=== PATIENT | male | born 1935 | race American Indian/Alaskan Native ===

== ENCOUNTER 2016-04-09 20:53 | Emergency (ER) | payer MEDICARE ==
[2016-04-09 21:41] LABS: Basophils % (Auto) 0.4 % (0.0-1.8); Eosinophils % (Auto) 0.2 % (0.0-4.3); Hematocrit 27.8 % (35.5-45.6); Hemoglobin 9.4 gm/dl (11.8-15.2); Mean Corpuscular HGB Conc 34 % (32-34); Mean Corpuscular Hemoglobin 30 pg (28-32); Mean Corpuscular Volume 87 fl (84-94); Platelet Count 315 K/mm3 (140-440); Red Cell Distribution Width 16.9 % (13.2-15.2); White Blood Count 7.5 K/mm3 (4.5-11.0)
[2016-04-09 21:48] LABS: Bilirubin,Urine NEG (Negative); Blood,Urine SM (Negative); Ketones,Urine TR mg/dL (Negative); Leukocyte Esterase,Urine NEG (Negative); Nitrite,Urine NEG (Negative); Protein,Urine <15 mg/dL mg/dL (Negative); Urobilinogen,Urine < 2.0 mg/dL (<2.0); WBC,Urine < 1.0 /HPF (0.0-6.0)
[2016-04-09 22:09] LABS: Anion Gap 22 mmol/L; B-Hydroxybutyrate 10.6 mg/dL (0.2-2.8); Blood Urea Nitrogen 24 mg/dL (9-20); Calcium 8.4 mg/dL (8.4-10.2); Carbon Dioxide 20 mmol/L (22-30); Chloride 93.9 mmol/L (98-107); Glucose 488 mg/dL (75-100); Potassium 4.4 mmol/L (3.6-5.0); Sodium 131 mmol/L (137-145)
[2016-04-09] MEDS ORDERED: NACL 0.9% 1000 ML 1,000 ML IV ONE ×2 (22:12→23:25)
--- NOTE | 2016-04-09 23:51 | Emergency Department Report ---
ED General Adult HPI - General Chief complaint: Hyperglycemia Stated complaint: HIGH BLOOD SUGAR Time Seen by Provider: 04/09/16 22:28 Source: patient, EMS Mode of arrival: Stretcher Limitations: No Limitations - History of Present Illness Initial comments: 80-year-old male presents to the emergency department complaining of elevated blood sugar. Patient states symptoms have been present for approximately one week. He reports generalized aches. He states he was recently taken off of Januvia and glipizide and started on metformin and Lantus. He states for the past week his home blood sugars have been reading over 300. Earlier today, he reports the meter was reading high. He denies abdominal pain, nausea, or vomiting. There are no other complaints. -: Gradual, week(s) (1) Severity scale (0 -10): 0 Consistency: constant Improves with: none Worsens with: none Associated Symptoms: denies other symptoms Treatments Prior to Arrival: none - Related Data Home Medications Medication Instructions Recorded Confirmed Last Taken Aspirin [Aspirin BABY CHEW TAB] 324 mg PO QDAY 04/09/16 04/09/16 04/09/16 Insulin Glargine [Lantus] 24 unit SUB-Q QHS 04/09/16 04/09/16 Unknown Previous Rx's Medication Instructions Recorded Last Taken Type oxyCODONE /ACETAMINOPHEN [Percocet 1 tab PO Q6HR PRN #20 tablet 04/10/16 Unknown Rx 5/325] Allergies Allergy/AdvReac Type Severity Reaction Status Date / Time No Known Allergies Allergy Verified 04/09/16 23:08 ED Review of Systems ROS: Stated complaint: HIGH BLOOD SUGAR Other details as noted in HPI Comment: All other systems reviewed and negative Constitutional: malaise Endocrine: see HPI ED Past Medical Hx - Past Medical History Previous Medical History?: Yes Hx Hypertension: Yes Hx Heart Attack/AMI: Yes (2007 with stent) Hx Diabetes: Yes (Type 2) - Surgical History Past Surgical History?: Yes Additional Surgical History: cardiac stent - Family History Family history: no significant - Social History Smoking Status: Unknown if ever smoked Substance Use Type: None - Medications Home Medications: Home Medications Medication Instructions Recorded Confirmed Last Taken Type Aspirin [Aspirin BABY CHEW TAB] 324 mg PO QDAY 04/09/16 04/09/16 04/09/16 History Insulin Glargine [Lantus] 24 unit SUB-Q QHS 04/09/16 04/09/16 Unknown History oxyCODONE /ACETAMINOPHEN [Percocet 1 tab PO Q6HR PRN #20 tablet 04/10/16 Unknown Rx 5/325] ED Physical Exam - General Limitations: No Limitations General appearance: alert, in no apparent distress - Head Head exam: Present: atraumatic, normocephalic - Eye Eye exam: Present: normal appearance, PERRL, EOMI - ENT ENT exam: Present: normal exam, normal orophraynx, mucous membranes moist - Neck Neck exam: Present: normal inspection, full ROM. Absent: tenderness - Respiratory Respiratory exam: Present: normal lung sounds bilaterally. Absent: respiratory distress - Cardiovascular Cardiovascular Exam: Present: regular rate, normal rhythm, normal heart sounds - GI/Abdominal GI/Abdominal exam: Present: soft, normal bowel sounds. Absent: distended, tenderness - Extremities Exam Extremities exam: Present: normal inspection, full ROM. Absent: tenderness - Back Exam Back exam: Present: normal inspection, full ROM. Absent: tenderness - Neurological Exam Neurological exam: Present: alert, oriented X3. Absent: motor sensory deficit - Skin Skin exam: Present: warm, dry, intact ED Course Vital Signs 04/09/16 04/09/16 04/09/16 21:02 22:23 22:29 Temperature 98.2 F Pulse Rate 84 87 Respiratory 17 16 Rate Blood Pressure 131/57 [Right] O2 Sat by Pulse 96 97 Oximetry 04/10/16 00:00 Temperature Pulse Rate 83 Respiratory 22 Rate Blood Pressure 126/59 [Right] O2 Sat by Pulse 98 Oximetry ED Medical Decision Making - Lab Data Result diagrams: 04/09/16 21:10 04/09/16 21:10 - Medical Decision Making Laboratory results reviewed and discussed with the patient and family. Patient' s blood sugar has decreased following IV fluids and IV insulin. Patient is stable for discharge home. - Differential Diagnosis hyperglycemia, DKA, occult infection Critical care attestation.: If time is entered above; I have spent that time in minutes in the direct care of this critically ill patient, excluding procedure time. ED Disposition Clinical Impression: Hyperglycemia due to type 2 diabetes mellitus Qualifiers: Diabetes mellitus prison insulin use: without termite helper use Qualified Code(s ): E11.65 - Type 2 diabetes mellitus with hyperglycemia Disposition: DISCHARGED TO HOME OR SELFCARE Is pt being admited?: No Condition: Stable Instructions: Diabetic Hyperglycemia (ED) Prescriptions: oxyCODONE /ACETAMINOPHEN [Percocet 5/325] 1 tab PO Q6HR PRN #20 tablet PRN Reason: Pain Referrals: DR NOA [Other] - 3-5 Days Time of Disposition: 03:27
[2016-04-10] MEDS ORDERED: NACL 0.9% 1000 ML 1,000 ML IV ONE
[2016-04-10] MEDS ORDERED: ULTRAM PO ONE (01:19)
[2016-04-10] MEDS ORDERED: PERCOCET 5/325 PO ONE (03:21)
[2016-04-10 04:19] VITALS: BP 124/60
== END 2016-04-10 04:19 | disposition home or self-care (01) ==
LOC: ED 20:53
DX: E11.65 Type 2 diabetes mellitus with hyperglycemia (principal); I10 Essential (primary) hypertension; I25.2 Old myocardial infarction; Z79.82 Long term (current) use of aspirin; Z79.4 Long term (current) use of insulin
CPT/HCPCS: 36415; 80048; 81001; 82010; 82805; 82962; 85025; 96361; 96374; 96376; 99284; J7030; J1815

== ENCOUNTER 2016-04-10 15:54 | Inpatient (IN) | payer MEDICARE ==
[2016-04-10] MEDS ORDERED: D50W (25GM) IV PRN (16:16)
[2016-04-10 17:47] LABS: Basophils % (Auto) 0.4 % (0.0-1.8); Eosinophils % (Auto) 0.8 % (0.0-4.3); Hematocrit 29.6 % (35.5-45.6); Hemoglobin 9.9 gm/dl (11.8-15.2); Mean Corpuscular HGB Conc 33 % (32-34); Mean Corpuscular Hemoglobin 28 pg (28-32); Mean Corpuscular Volume 85 fl (84-94); Platelet Count 336 K/mm3 (140-440); Red Cell Distribution Width 16.9 % (13.2-15.2)
[2016-04-10 17:52] LABS: White Blood Count 6.9 K/mm3 (4.5-11.0)
[2016-04-10 18:07] LABS: Alanine Aminotransferase 11 units/L (7-56); Albumin 3.2 g/dL (3.9-5); Albumin/Globulin Ratio 0.7 %; Alkaline Phosphatase 1023 units/L (35-129); Anion Gap 21 mmol/L; B-Hydroxybutyrate 4.3 mg/dL (0.2-2.8); BUN/Creatinine Ratio 18.75; Bilirubin,Total 0.2 mg/dL (0.1-1.2); Blood Urea Nitrogen 15 mg/dL (9-20); Calcium 8.6 mg/dL (8.4-10.2); Carbon Dioxide 19 mmol/L (22-30); Chloride 101.3 mmol/L (98-107); Glucose 223 mg/dL (75-100); Potassium 4.2 mmol/L (3.6-5.0); Sodium 137 mmol/L (137-145); Total Protein 7.6 g/dL (6.3-8.2)
[2016-04-10] MEDS: BABY ASPIRIN PO SCH (18:50)
--- NOTE | 2016-04-10 19:36 | History and Physical Report ---
History of Present Illness Date of examination: 04/10/16 Date of admission: 04/10/16 17:03 Chief complaint: High blood glucose Generalized weakness Pain in the body Coldness in the lower extremities History of present illness: 80 year old male presenting in the office with complaints of high blood glucose over the past week .Patient with Type 2 Diabetes who was previously on oral diabetes medicaation including Metformin, Glimepiride and JAnuvia .Patient developed progressive difficulty with blood glucose control over the past month and was thus changed to Lantus insulin and being monitored at home .Blood glucose remained high and was reported to be over 500 at home last and patient was admitted to [facility] for five days since last and was discharged home yesterday . Since getting home , patient remained weak , eating poorly and complaining of pain all over the body and bloos glucose this mornig was reported to be 452 .Patient also complaining of pain and coldness in the lower extremity with pain most severe in the right leg down to the foot .Family became concerned that the blood glucose remained elevated and patient becoming weaker and presented in the office today . During hospitalization at [facility] , patient was evaluated for chest pain and Stress test and labs wee reported to be normal .Patient was evaluated by [facility] ([facility]). Patient's blood glucose was checked in the office and noted to be 397now being admitted for further evaluation for possible DKA . Patient denied any chest pain and no shortness of breath and no fever or chills . Past History Past Medical History: diabetes Social history: , lives with family Family history: hypertension Medications and Allergies Allergies Allergy/AdvReac Type Severity Reaction Status Date / Time No Known Allergies Allergy Verified 04/09/16 23:08 Home Medications Medication Instructions Recorded Confirmed Last Taken Type Aspirin [Aspirin BABY CHEW TAB] 324 mg PO QDAY 04/09/16 04/10/16 04/09/16 History Insulin Glargine [Lantus] 24 unit SUB-Q QHS 04/09/16 04/10/16 04/09/16 History Lisinopril 20 mg PO DAILY 04/10/16 04/10/16 04/10/16 History Plavix 75 mg PO DAILY 04/10/16 04/10/16 04/10/16 History metFORMIN 1,000 mg PO BID 04/10/16 04/10/16 04/10/16 History oxyCODONE /ACETAMINOPHEN [Percocet 1 tab PO Q6HR PRN #20 tablet 04/10/16 Unknown Rx 5/325] Active Meds: Active Medications Aspirin (Baby Aspirin) 324 mg PO QDAY [facility] Last Admin: 04/10/16 18:50 Dose: 324 mg Dextrose (D50w (25gm)) 50 ml IV PRN PRN PRN Reason: Hypoglycemia Heparin Sodium (Porcine) (Heparin) 5,000 unit SUB-Q Q12HR [facility] Insulin Detemir (Levemir) 24 units SUB-Q QHS [facility] Review of Systems Constitutional: weight loss, fatigue, weakness, malaise, lethargy, poor appetite Eyes: bilateral: blurred vision Cardiovascular: orthopnea, palpitations, lightheadedness Gastrointestinal: abdominal pain, early satiety Genitourinary Male: urinary frequency Neurological: numbness, tingling, memory loss Endocrine: polyuria, weight change Exam - Constitutional Vitals: Temp Pulse Resp BP Pulse Ox 98.1 F 75 20 135/74 98 04/10/16 18:48 04/10/16 18:48 04/10/16 18:48 04/10/16 18:48 04/10/16 18:48 General appearance: Present: mild distress - EENT ENT: hearing intact, hearing decreased - Neck Neck: Present: supple - Respiratory Respiratory effort: normal Respiratory: bilateral: CTA - Cardiovascular Rhythm: regularly irregular Heart Sounds: Present: S1 & S2 - Extremities Extremity abnormal: cold, pulses diminished Peripheral Pulses: abnormal - Peripheral pulses dorsalis pedis Pulse Strength: 1+ (Doppler) - Abdominal General gastrointestinal: Present: soft, non-tender, non-distended, normal bowel sounds Male genitourinary: Present: deferred - Rectal Rectal Exam: deferred - Integumentary Integumentary: Present: warm, dry, decreased turgor - Musculoskeletal Musculoskeletal: strength equal bilaterally - Psychiatric Psychiatric: depressed - Neurologic Neurologic: CNII-XII intact Results - Labs CBC & Chem 7: 04/10/16 17:27 04/10/16 17:21 Labs: Abnormal lab results 04/10/16 04/10/16 Range/Units 17:21 17:27 RBC 3.50 L (3.65-5.03) M/mm3 Hgb 9.9 L (11.8-15.2) gm/dl Hct 29.6 L (35.5-45.6) % RDW 16.9 H (13.2-15.2) % Carbon Dioxide 19 L (22-30) mmol/L Glucose 223 H (75-100) mg/dL Alkaline Phosphatase 1023 H (35-129) units/L Albumin 3.2 L (3.9-5) g/dL Ketones 4.3 H (0.2-2.8) mg/dL Assessment and Plan - Patient Problems (1) Dehydration Current Visit: Yes Status: Acute Plan to address problem: secondary to ongoing hyperglycemia and polyuria as well as poor oral in take . Will Hydrate with Normal saline and monitor urinary output closely (2) Peripheral arterial disease Current Visit: Yes Status: Acute Plan to address problem: Lower extremity pulses noted to be diminished worse on the right with associated coldness and pain . Will obtain lower extremity arterial dopplers and vascular evaluation if indicated . (3) Essential (primary) hypertension Current Visit: Yes Status: Acute Plan to address problem: BP fairly stable , will continue to monitor (4) Abnormal liver enzymes Current Visit: Yes Status: Acute Plan to address problem: Alkaline phosphatase noted to be moderately elevated . will follow up hepatic function panel ,Ultrasound of RUQ as well as hepatitis profile .
[2016-04-10] MEDS ORDERED: NACL 0.9% 1000 ML 1,000 ML with KCL 20 MEQ IV SCH (20:00)
[2016-04-10] MEDS ORDERED: NON-FORMULARY (Lisinopril 20 MG) PO SCH (20:00)
[2016-04-10] MEDS: HEPARIN SUB-Q SCH (21:21)
[2016-04-10] MEDS: ZESTRIL PO SCH (21:21)
[2016-04-10 21:53] LABS: Bilirubin,Urine NEG (Negative); Blood,Urine SM (Negative); Ketones,Urine NEG (Negative); Leukocyte Esterase,Urine NEG (Negative); Mucus,Urine FEW /HPF; Nitrite,Urine NEG (Negative)
[2016-04-10] MEDS ORDERED: LEVEMIR SUB-Q SCH (22:00)
[2016-04-10] MEDS ORDERED: INSULIN GLARGINE 24 UNIT SUB-Q SCH (22:00)
--- NOTE | 2016-04-11 08:58 | Progress Note ---
Assessment and Plan - Patient Problems (1) Dehydration Current Visit: Yes Status: Acute Plan to address problem: secondary to ongoing hyperglycemia and polyuria as well as poor oral in take . Will Hydrate with Normal saline and monitor urinary output closely (2) Peripheral arterial disease Current Visit: Yes Status: Acute Plan to address problem: Lower extremity pulses noted to be diminished worse on the right with associated coldness and pain . Will obtain lower extremity arterial dopplers and vascular evaluation if indicated . (3) Essential (primary) hypertension Current Visit: Yes Status: Acute Plan to address problem: BP fairly stable , will continue to monitor (4) Abnormal liver enzymes Current Visit: Yes Status: Acute Plan to address problem: Workup abnormally elevated Alkaline phosphatase , check ultrasound of right upper quadrant Subjective Date of service: 04/11/16 Principal diagnosis: Uncontrolled Diabetes , Peripheral arterial disease , moderate dehydration Interval history: Patient seen and examined chart reviewed, labs on admission also reviewed. Patient's denied any chest pain or shortness of breath but complains of ongoing pain in the lower extremities worse on the left lower extremities, no fever reported. Blood sugar reported still running high, a.m. fasting blood sugar was 200. Objective - Exam Narrative Exam: GENERAL: Elderly male who is not in any acute distress, not pale no jaundice no cyanosis HEENT: Mucous membranes dry pharynx is clear no exudate or hemorrhage. NECK: [No JVD, no thyroid enlargement and no lymphadenopathy.] CHEST/LUNGS: [Good air exchange bilaterally, no wheeze, no rales and no rhonchi. ] [No chest wall tenderness, percussion is normal, symmetrical chest wall.] HEART/CARDIOVASCULAR: [Regular rate and rhythm, S1 and S2 only, no murmur.] ABDOMEN: [Abdomen is soft, nondistended, no guarding, no rebound tenderness, no masses palpable per abdomen, active bowel sounds.] SKIN: Skin is dry with poor skin turgor, no rash NEURO: [Awake, alert, oriented x3, speech normal. Power 5/5 in all the extremities.] EXTREMITIES: No pedal edema, peripheral pulses diminished, +1 on the right and left dorsalis pedis. Tibialis posterior poorly palpable bilaterally. Femoral pulses symmetrical good volume. - Constitutional Vitals: Vital Signs - 12hr 04/11/16 04/11/16 00:00 08:51 Temperature 98.3 F 98.6 F Pulse Rate [ 68 72 Right] Respiratory 18 20 Rate Blood Pressure 113/56 126/69 [Right Arm] O2 Sat by Pulse 98 97 Oximetry - Labs CBC & Chem 7: 04/10/16 17:27 04/10/16 17:21 Labs: Abnormal lab results 04/10/16 04/10/16 04/10/16 Range/Units 17:21 17:27 21:23 RBC 3.50 L (3.65-5.03) M/mm3 Hgb 9.9 L (11.8-15.2) gm/dl Hct 29.6 L (35.5-45.6) % RDW 16.9 H (13.2-15.2) % Carbon Dioxide 19 L (22-30) mmol/L Glucose 223 H (75-100) mg/dL POC Glucose 136 H (70-105) Alkaline Phosphatase 1023 H (35-129) units/L Albumin 3.2 L (3.9-5) g/dL Ketones 4.3 H (0.2-2.8) mg/dL 04/11/16 Range/Units 06:26 RBC (3.65-5.03) M/mm3 Hgb (11.8-15.2) gm/dl Hct (35.5-45.6) % RDW (13.2-15.2) % Carbon Dioxide (22-30) mmol/L Glucose (75-100) mg/dL POC Glucose 200 H (70-105) Alkaline Phosphatase (35-129) units/L Albumin (3.9-5) g/dL Ketones (0.2-2.8) mg/dL
[2016-04-11 09:28] LABS: Anion Gap 18 mmol/L; BUN/Creatinine Ratio 15.71; Blood Urea Nitrogen 11 mg/dL (9-20); Carbon Dioxide 21 mmol/L (22-30); Chloride 105.4 mmol/L (98-107); Glucose 200 mg/dL (75-100); Potassium 4.1 mmol/L (3.6-5.0); Sodium 140 mmol/L (137-145)
[2016-04-11] MEDS: HEPARIN SUB-Q SCH ×2 (09:40→23:09)
[2016-04-11] MEDS: BABY ASPIRIN PO SCH (09:40)
[2016-04-11] MEDS: PLAVIX PO SCH (09:41)
[2016-04-11] MEDS: ZESTRIL PO SCH (09:42)
[2016-04-11] MEDS ORDERED: NS/KCL 20MEQ 1,000 ML IV SCH (10:00)
[2016-04-11] MEDS ORDERED: NON-FORMULARY (Plavix 75 MG) PO SCH (10:00)
--- NOTE | 2016-04-11 10:09 | Admit Criteria Form ---
Admission Criteria Documentation: DIABETES Clinical Indications for Admission to Inpatient Care (Place 'X' for any and all applicable criteria): Admission is indicated by presence of ALL (if I & II) or ANY ONE (if III or IV) of the following (1)(2)(3)(4): [X]I. Diabetes is uncontrolled as indicated by ANY ONE of the following: [ ]a) Diabetic ketoacidosis as indicated by ALL of the following (8): [ ]i) Hyperglycemia (eg, plasma glucose greater than 200 mg/ dL (11.1 mmol/L)) [ ]ii) Acidosis (eg, arterial pH less than 7.30, serum bicarbonate level less than 15 mEq/L (mmol/L)) [ ]iii) Moderate ketonuria or ketonemia [ ]b) Hyperglycemic hyperosmolar state as indicated by ALL of the following(9)(10): [ ]i) Neurologic dysfunction (eg, stupor, coma, hemiparesis , seizure)(13) [ ]ii) Plasma glucose greater than 600 mg/dL (33.3 mmol/L) [ ]iii) Serum osmolality greater than 320 mOsm/kg (mmol/kg) [X]c) Severe signs or symptoms secondary to hyperglycemia indicated by ANY ONE of the following: [ ]i) Altered mental status(10) [X]ii) Significant hypovolemia or dehydration [ ]iii) Intractable nausea or vomiting [ ]iv) Unexplained fever or severe infection [ ]v) Severe electrolyte abnormality (eg, hypokalemia, hyperkalemia, hypernatremia) [ ]II. Management at other levels of care (Also use Diabetes: Observation Care as appropriate) is not feasible because of ANY ONE of the following: [ ]a) Condition was not adequately corrected with treatment at other levels of care. [ ]b) Treatment at other levels of care is not appropriate because of condition severity (eg, hyperosmolar coma). [X]III. Contraindications and/or Inappropriate clinical situations for Observational Care in patients with Diabetes, when ANY ONE of the following is required: [X]a) Patient require specific diagnostic workup or therapeutic intervention 22 [ ]b) Patient with abnormal vital signs or altered mental status 23 [ ]IV. General contraindications and/or Inappropriate clinical situations for Observational Care in patients with Diabetes, when ANY ONE of the following is required: [ ]a) Prediction of prolongation of LOS based on ANY ONE of the following may be considered as a contraindication for observational care 2, 3, 4, 5, 6, 7, 8, 9, 10, 11 [ ]i) Age > 65 yrs. [ ]ii) Patient arriving by ambulance [ ]iii) Patient with high acuity [ ]iv) Patient requiring vital sign monitoring [ ]v) Patient on IV medication [ ]b) Systolic blood pressures 180mmHg 3,12 [ ]c) Patient with altered mental status including delirium and other alteration of consciousness, (3) [ ]d) Patient whose discharge disposition will be to a [facility]ci home or rehabilitation home should not be managed in Emergency Department Observation Unit. CMS rule requires 3 days hospital stay before such placement.3,13 [ ]e) Patient with failure to thrive due to broad array of etiologies 3,16,17 [ ]f) Inability to ambulate 3,14 Extended stay beyond goal length of stay may be needed for(3)(20): [ ]a) Treatment of precipitating causes [ ]b) Development of hypoglycemia [ ]c) Complications of treatment [ ]d) Complications of decompensated diabetes (eg, acute gastric dilatation, persistent metabolic or neurologic derangement) [ ]e) Active Comorbidities [ ]f) Older patients( 65 years or older) The original [employer] content created by [employer] has been revised. The portions of the content which have been revised are identified through the use of italic text or in bold,and [facility] has neither reviewed nor approved the modified material. All other unmodified content is copyright [employer]. Please see references footnoted in the original [facility] edition 2016 Admission Criteria Met: Yes
[2016-04-11] MEDS: NOVOLOG SUB-Q SCH ×3 (14:03→22:14)
[2016-04-11] MEDS: TYLENOL PO PRN (21:28)
[2016-04-11] MEDS ORDERED: LEVEMIR SUB-Q SCH (22:00)
[2016-04-12] MEDS: NOVOLOG SUB-Q SCH ×4 (07:30→17:52)
--- NOTE | 2016-04-12 08:42 | Ultrasound Report ---
ULTRASOUND ABDOMEN COMPLETE: Technique: Transabdominal ultrasound with color Doppler interrogation. History: Abnormal liver function tests. Findings: The liver is normal size, contour and echotexture. No focal liver mass or parenchymal disease. The gallbladder dimensions are within normal limits without intraluminal stone, wall thickening, or pericholecystic fluid. The CBD is normal caliber. The visualized portions of the pancreas including the head and proximal body are within normal limits. The kidneys demonstrate no hydronephrosis or mass. A right renal cyst with single septation measures 4.3 x 5.3 cm. Cortical thickness and echogenicity are within normal limits bilaterally. The spleen and aorta are within normal limits. No aneurysmal dilatation is noted. No ascites. The bladder is unremarkable. Small bilateral pleural effusions are partially imaged. IMPRESSION: Unremarkable abdominal ultrasound. Right renal cyst. Small bilateral pleural effusions.
--- NOTE | 2016-04-12 09:00 | Progress Note ---
Assessment and Plan - Patient Problems (1) Dehydration Current Visit: Yes Status: Acute Plan to address problem: secondary to ongoing hyperglycemia and polyuria as well as poor oral in take . Will Hydrate with Normal saline and monitor urinary output closely (2) Peripheral arterial disease Current Visit: Yes Status: Acute Plan to address problem: We'll follow up on arterial duplex performed yesterday report still pending. (3) Essential (primary) hypertension Current Visit: Yes Status: Acute Plan to address problem: BP fairly stable , will continue to monitor (4) Abnormal liver enzymes Current Visit: Yes Status: Acute Plan to address problem: Abdominal ultrasound report noted showing no cholelithiasis and normal liver architecture. GGT ordered still pending. (5) Hyperglycemia due to type 2 diabetes mellitus Current Visit: No Status: Acute Qualifiers: Diabetes mellitus terminal gauger supervisor insulin use: without terminal gauger supervisor use Qualified Code(s): E11.65 - Type 2 diabetes mellitus with hyperglycemia Plan to address problem: Blood glucose noticed a running high. P.m. dose of Lantus insulin being adjusted, will change patient to high-dose sliding scale regular insulin coverage for better control, obtain dietary counseling services and diabetes education and counseling Subjective Date of service: 04/12/16 Principal diagnosis: Uncontrolled Diabetes , Peripheral arterial disease , moderate dehydration Interval history: Patient seen and examined chart reviewed, patient reports that he is feeling better still has pain in the right lower extremity but improving. No fever reported, blood sugar reported still running high in the 200s but trending down. Objective - Exam Narrative Exam: GENERAL: Elderly male who is not in any acute distress, not pale no jaundice no cyanosis HEENT: Mucous membranes dry pharynx is clear no exudate or hemorrhage. NECK: [No JVD, no thyroid enlargement and no lymphadenopathy.] CHEST/LUNGS: [Good air exchange bilaterally, no wheeze, no rales and no rhonchi. ] [No chest wall tenderness, percussion is normal, symmetrical chest wall.] HEART/CARDIOVASCULAR: [Regular rate and rhythm, S1 and S2 only, no murmur.] ABDOMEN: [Abdomen is soft, nondistended, no guarding, no rebound tenderness, no masses palpable per abdomen, active bowel sounds.] SKIN: Skin is dry with poor skin turgor, no rash NEURO: [Awake, alert, oriented x3, speech normal. Power 5/5 in all the extremities.] EXTREMITIES: No pedal edema, peripheral pulses diminished, +1 on the right and left dorsalis pedis. Tibialis posterior poorly palpable bilaterally. Femoral pulses symmetrical good volume. - Constitutional Vitals: Vital Signs - 12hr 04/11/16 22:45 Temperature 98.6 F Pulse Rate [ 71 Left] Respiratory 18 Rate Blood Pressure 123/60 [Left Arm] O2 Sat by Pulse 99 Oximetry - Labs CBC & Chem 7: 04/10/16 17:27 04/11/16 08:52 Labs: Abnormal lab results 04/11/16 04/11/16 04/11/16 Range/Units 08:52 08:52 11:42 Carbon Dioxide 21 L (22-30) mmol/L Creatinine 0.7 L (0.8-1.5) mg/dL Glucose 200 H (75-100) mg/dL POC Glucose 302 H (70-105) Calcium 8.0 L (8.4-10.2) mg/dL HDL Cholesterol 36 L (40-59) mg/dL 04/11/16 04/11/16 04/12/16 Range/Units 16:47 21:53 06:33 Carbon Dioxide (22-30) mmol/L Creatinine (0.8-1.5) mg/dL Glucose (75-100) mg/dL POC Glucose 293 H 209 H 253 H (70-105) Calcium (8.4-10.2) mg/dL HDL Cholesterol (40-59) mg/dL
[2016-04-12] MEDS: HEPARIN SUB-Q SCH ×2 (09:43→23:31)
[2016-04-12] MEDS: ZESTRIL PO SCH (09:44)
[2016-04-12] MEDS: PLAVIX PO SCH (09:45)
[2016-04-12] MEDS: BABY ASPIRIN PO SCH (09:46)
[2016-04-12] MEDS: TYLENOL PO PRN (20:02)
[2016-04-12] MEDS: LEVEMIR SUB-Q SCH (22:35)
[2016-04-13] MEDS: NOVOLOG SUB-Q SCH ×5 (01:39→22:31)
[2016-04-13 06:20] LABS: Alanine Aminotransferase 12 units/L (7-56); Albumin 2.7 g/dL (3.9-5); Albumin/Globulin Ratio 0.7 %; Alkaline Phosphatase 906 units/L (35-129); Anion Gap 18 mmol/L; Bilirubin,Total 0.2 mg/dL (0.1-1.2); Blood Urea Nitrogen 8 mg/dL (9-20); Calcium 8.6 mg/dL (8.4-10.2); Carbon Dioxide 22 mmol/L (22-30); Chloride 106.5 mmol/L (98-107); Glucose 98 mg/dL (75-100); Potassium 4.1 mmol/L (3.6-5.0); Sodium 142 mmol/L (137-145); Total Protein 6.7 g/dL (6.3-8.2)
--- NOTE | 2016-04-13 09:17 | Discharge Summary ---
Providers - Providers Date of Admission: 04/10/16 17:03 Date of discharge: 04/13/16 Attending physician: SIMÓN MEZA 04/12/16 09:01 Consult to Dietitian/Nutrition [CONS] Routine Physician Instructions: Reason For Exam: Reason for Consult: Diet education Primary care physician: [employer] Hospitalization Reason for admission: Uncontrolled Diabetes Condition: Good Pertinent studies: Arterial Duplex Hospital course: Patient admitted from office with poorly controlled diabetes .Blood sugar at home running in the 400 .Patient was also having pain in the lower extreity .with poorly palpable peripheral pulses as well as cold extremity on the right . Patient blood glucose remained elevated whiole long acting insulin dose was adjusted with additional sliding scale regular insulin . Blood glucose has improved over the past 24 hours . Arterial duplex studies was done result currently pending . Patient also noted to have markedly elevated Alkaline phosphatase which is being worked up , GGT ordered still pending , Abdominal ultrasound performed was unremarkable . Patient stated that pain in the lower extremity has subsided and blood glucose has improved with fasting blood glucose this morning of Patient is no asessed to be stable enough for discharge to continue insulin self adjustyment and followup with home health .Patient to followup in office in 2 weeks. Disposition: DC/[place] HOME UNDER HOME HEALTH - Discharge Diagnoses (1) Dehydration Status: Resolved (2) Peripheral arterial disease Status: Suspected (3) Essential (primary) hypertension Status: Chronic (4) Abnormal liver enzymes Status: Chronic (5) Hyperglycemia due to type 2 diabetes mellitus Status: Resolved Qualifiers: Diabetes mellitus intermediate frame tender insulin use: without long-term use Qualified Code(s): E11.65 - Type 2 diabetes mellitus with hyperglycemia Core Measure Documentation - Palliative Care Palliative Care/ Comfort Measures: Not Applicable - Core Measures Any of the following diagnoses?: none Exam - Physical Exam Narrative exam: GENERAL: Elderly male who is not in any acute distress, not pale no jaundice no cyanosis HEENT: Mucous membranes dry pharynx is clear no exudate or hemorrhage. NECK: [No JVD, no thyroid enlargement and no lymphadenopathy.] CHEST/LUNGS: [Good air exchange bilaterally, no wheeze, no rales and no rhonchi. ] [No chest wall tenderness, percussion is normal, symmetrical chest wall.] HEART/CARDIOVASCULAR: [Regular rate and rhythm, S1 and S2 only, no murmur.] ABDOMEN: [Abdomen is soft, nondistended, no guarding, no rebound tenderness, no masses palpable per abdomen, active bowel sounds.] SKIN: Skin is dry with poor skin turgor, no rash NEURO: [Awake, alert, oriented x3, speech normal. Power 5/5 in all the extremities.] EXTREMITIES: No pedal edema, peripheral pulses diminished, +1 on the right and left dorsalis pedis. Tibialis posterior poorly palpable bilaterally. Femoral pulses symmetrical good volume. - Constitutional Vitals: Temp Pulse Resp BP Pulse Ox 98.1 F 74 20 142/70 98 04/13/16 08:04 04/13/16 08:04 04/13/16 08:04 04/13/16 08:04 04/13/16 08:04 Plan Activity: no restrictions Weight Bearing Status: Full Weight Bearing Diet: diabetic Special Instructions: record blood sugar diary Prescriptions: Insulin Glargine [Lantus VIAL] 35 unit SUB-Q QHS #1 units
--- NOTE | 2016-04-13 09:17 | Vascular Lab Report ---
LOWER EXTREMITY ARTERIAL DUPLEX: REASON FOR EXAM: Lower extremity pain. COMMENTS ON THE RIGHT: Triphasic waveforms are seen proximally. Triphasic and biphasic waveforms are seen distally. No significant velocity gradients are identified. Minimal plaque is visualized. Findings are consistent with relatively normal perfusion. Findings are consistent with the ability to heal distal wounds. COMMENTS ON THE LEFT: Triphasic waveforms are seen proximally. Triphasic waveforms are seen distally. No significant velocity gradients are identified. Minimal plaque is visualized. Findings are consistent with relatively normal perfusion. Findings are consistent with the ability to heal distal wounds. IMPRESSION: RIGHT: Essentially normal arterial flow. LEFT:Essentially normal arterial flow.
[2016-04-13] MEDS: HEPARIN SUB-Q SCH ×2 (10:00→22:30)
[2016-04-13] MEDS: BABY ASPIRIN PO SCH (10:01)
[2016-04-13] MEDS: PLAVIX PO SCH (10:02)
[2016-04-13] MEDS: ZESTRIL PO SCH (10:02)
[2016-04-13] MEDS: LEVEMIR SUB-Q SCH (22:30)
[2016-04-14] MEDS: NOVOLOG SUB-Q SCH ×2 (10:27→12:49)
[2016-04-14] MEDS: PLAVIX PO SCH (10:32)
[2016-04-14] MEDS: BABY ASPIRIN PO SCH (10:34)
[2016-04-14] MEDS: HEPARIN SUB-Q SCH (10:35)
[2016-04-14] MEDS: ZESTRIL PO SCH (10:40)
[2016-04-14 10:45] VITALS: BP 132/68
--- NOTE | 2016-04-14 11:31 | Progress Note ---
Assessment and Plan - Patient Problems (1) Peripheral arterial disease Current Visit: Yes Status: Suspected Plan to address problem: Arterial duplex report reviewed showing essentially normal arterial flow (2) Essential (primary) hypertension Current Visit: Yes Status: Chronic Plan to address problem: BP fairly stable , will continue to monitor (3) Abnormal liver enzymes Current Visit: Yes Status: Chronic Plan to address problem: Abdominal ultrasound report noted showing no cholelithiasis and normal liver architecture. GGT ordered still pending. Subjective Date of service: 04/14/16 Principal diagnosis: Uncontrolled Diabetes , Peripheral arterial disease , moderate dehydration Objective - Exam Narrative Exam: Patient seen and examined . Patient denied any new complaints .Vitals stable .Blood glucose improving Fasting bold gucose this morning was 75 .Denied chest pain and no shortness of breath . - Constitutional Vitals: Vital Signs - 12hr 04/13/16 04/14/16 04/14/16 23:57 07:45 10:40 Temperature 98.6 F 98.3 F Pulse Rate 73 Pulse Rate [ 72 71 Left Radial] Respiratory 20 16 Rate Blood Pressure 132/68 Blood Pressure 163/75 127/66 [Right Arm] O2 Sat by Pulse 98 99 Oximetry - Labs CBC & Chem 7: 04/10/16 17:27 04/13/16 05:21 Labs: Abnormal lab results 04/13/16 04/13/16 04/13/16 Range/Units 11:43 16:56 21:13 POC Glucose 141 H 204 H 185 H (70-105)
== END 2016-04-14 14:05 | disposition home health service (06) | DRG 639 ==
LOC: 3A 15:54 → UNDOADMIN 15:54 → 3A 17:03
PROVIDERS: ADMIT Internal Medicine; ATTEND Internal Medicine
DX: E11.65 Type 2 diabetes mellitus with hyperglycemia (principal); E86.0 Dehydration; I73.9 Peripheral vascular disease, unspecified; K76.89 Other specified diseases of liver; I10 Essential (primary) hypertension; E11.51 Type 2 diabetes mellitus with diabetic peripheral angiopathy without gangrene; F32.9 Major depressive disorder, single episode, unspecified; Z79.4 Long term (current) use of insulin; Z82.49 Family history of ischemic heart disease and other diseases of the circulatory system; Z79.899 Other long term (current) drug therapy; Z79.82 Long term (current) use of aspirin
CPT/HCPCS: 36415; 76700; 80048; 80053; 80061; 81001; 82010; 82962; 85025; 93005; 93010; 93925; J1644; J1815; J1818; J3480; J7030

== ENCOUNTER 2016-09-17 08:38 | Day surgery (SDC) | payer MEDICARE ==
[2016-09-17] MEDS ORDERED: SUBLIMAZE IV ONE (09:18)
[2016-09-17] MEDS ORDERED: VERSED IV ONE ×2 (09:18→11:25)
[2016-09-17 10:11] LABS: Basophils % (Auto) 0.8 % (0.0-1.8); Eosinophils % (Auto) 1.4 % (0.0-4.3); Hematocrit 30.7 % (35.5-45.6); Hemoglobin 9.6 gm/dl (11.8-15.2); Mean Corpuscular HGB Conc 31 % (32-34); Mean Corpuscular Hemoglobin 27 pg (28-32); Mean Corpuscular Volume 86 fl (84-94); Platelet Count 347 K/mm3 (140-440); Red Blood Count 3.57 M/mm3 (3.65-5.03)
[2016-09-17 10:12] LABS: Red Cell Distribution Width 23.8 % (13.2-15.2)
[2016-09-17 11:22] LABS: INR 1.12 (0.87-1.13); Partial Thromboplastin Time 31.7 Sec. (24.2-36.6)
[2016-09-17] MEDS ORDERED: SUBLIMAZE ONE (11:25)
[2016-09-17 13:25] VITALS: BP 133/63
--- NOTE | 2016-09-17 13:52 | Cat Scan Report ---
CT BIOPSY BONE DEEP HISTORY: Prostate cancer. DESCRIPTION OF PROCEDURE: Informed consent was obtained from a family member. Sterile technique was utilized. Conscious sedation was accomplished with Versed and fentanyl. The patient was sedated for 15 minutes. Intraobserver time of [address] guidance, an 11-gauge trocar needle was advanced into the right posterior iliac bone. A single 2 cm bone core was obtained. Pathology was on site to handle the sample. No complications. IMPRESSION: Successful CT-guided biopsy of the right posterior iliac bone.
== END 2016-09-17 13:30 | disposition home or self-care (01) ==
LOC: OPU 08:38
PROVIDERS: ATTEND Internal Medicine Hematology
DX: C79.51 Secondary malignant neoplasm of bone (principal); C61 Malignant neoplasm of prostate
CPT/HCPCS: 20225; 36415; 77012; 85025; 85610; 85730; 88173; 88305; 88307; 88333; 88342; J2250; J3010